=== PATIENT | male | born 1970 | race Hispanic/Latino ===

== ENCOUNTER 2018-02-04 17:23 | Inpatient (IN) | payer SELFPAY ==
[2018-02-04 17:31] VITALS: BMI 23.6
[2018-02-04] MEDS ORDERED: Multivitamin (MVI) 10 ML, Thiamine 100 MG, Folic Acid 1 MG in Sodium Chloride 0.9% 1,00... IV ONE (17:46)
[2018-02-04 18:09] LABS: VENOUS BLOOD GAS BASE EXCESS 4.9 mmol/L (0.0-2.0); VENOUS BLOOD GAS PO2 66 mm/Hg (30-55); VENOUS BLOOD PH 7.46 (7.32-7.43)
[2018-02-04 18:11] LABS: BASO # 0.02 K/mm3 (0.0-2.0); BASO % 0.2 % (0.0-3.0); GRAN # 10.05 (1.4-6.5); GRAN % 84.4 % (50.0-68.0); LYMPH # 1.1 (1.2-3.4); LYMPH % 9.3 % (22.0-35.0); MEAN CELL VOLUME 85.6 fl (80.0-105.0); MEAN CORPUSCULAR HEMOGLOBIN 31.6 pg (25.0-35.0); MEAN PLATELET VOLUME 9.8 fl (7.0-11.0); MONO # 0.7 (0.1-0.6); MONO % 6.1 % (1.0-6.0); RBC 5.06 10^6/uL (3.5-6.1); RED CELL DISTRIBUTION WIDTH 12.9 % (11.5-14.5); WHITE BLOOD COUNT 11.9 10^3/ul (4.5-11.0)
--- NOTE | 2018-02-04 18:14 | RAD ---
Date of service: 02/04/2018 PROCEDURE: CHEST RADIOGRAPH, 1 VIEW HISTORY: etoh withdrawal COMPARISON: None available. FINDINGS: LUNGS: Clear. PLEURA: No pneumothorax or pleural fluid seen. CARDIOVASCULAR: Normal. OSSEOUS STRUCTURES: No significant abnormalities. VISUALIZED UPPER ABDOMEN: Normal. OTHER FINDINGS: None. IMPRESSION: No focal airspace opacity.
[2018-02-04 18:22] LABS: ALB/GLOB RATIO 1.5 (1.1-1.8); ALBUMIN 4.9 g/dL (3.0-4.8); ALT/SGPT 32 U/L (7-56); AST/SGOT 50 U/L (17-59); BLOOD UREA NITROGEN 13 mg/dL (7-21); GFR AFRICAN-AMERICAN > 60; GFR NON-AFRICAN AMERICAN > 60
[2018-02-04 18:25] LABS: INR 1.11 (0.93-1.08); PARTIAL THROMBOPLASTIN TIME 29.6 Seconds (25.1-36.5); PROTHROMBIN TIME 12.7 SECONDS (9.4-12.5)
[2018-02-04 18:26] LABS: ACETAMINOPHEN < 10.0 ug/ml (10.0-20.0); SALICYLATE < 1 mg/dL (2.0-20.0)
[2018-02-04] MEDS ORDERED: Sodium Chloride 0.9% 1,000 ML IV STA (18:29)
[2018-02-04 18:33] LABS: TROPONIN I < 0.01 ng/mL
[2018-02-04 18:45] LABS: CK MB% 0.8 % (2.5-3.0); CK-MB 8.1 ng/mL (0.0-3.6)
[2018-02-04 18:58] LABS: OSMOLALITY,SERUM 328 mosm/kg (272-300)
--- NOTE | 2018-02-04 19:22 | ED PDOC ---
Arrival/HPI - General Chief Complaint: GI Problem Time Seen by Provider: 02/04/18 17:24 Historian: Patient - History of Present Illness Narrative History of Present Illness (Text): 02/04/18 19:21 47-year-old male with a history of alcohol abuse presents today feeling very anxious and shaky. Patient states he drank a bottle of rubbing alcohol today. Patient complaining of nausea and vomiting. pt states he drank the rubbing alcohol because he didnt have any alcohol in the house. He denies dizziness. He denies chest pain. Patient states he feels his heart racing. Patient denies suicidal or homicidal ideation Past Medical History - Provider Review Nursing Documentation Reviewed: Yes - Travel History Have you recently traveled outside [place] w/in the past 3 mons?: No - Infectious Disease Hx of Infectious Diseases: None - Tetanus Immunization Tetanus Immunization: Unknown - Cardiac Hx Pacemaker: No - Pulmonary Hx Respiratory Disorders: No - Neurological Hx Paralysis: No - HEENT Hx HEENT Disorder: No - Renal Hx Renal Disorder: No - Endocrine/Metabolic Hx Endocrine Disorders: No - Hematological/Oncological Hx Blood Transfusions: No Hx Blood Transfusion Reaction: No - Integumentary Hx Dermatological Disorder: No - Musculoskeletal/Rheumatological Hx Musculoskeletal Disorders: No - Gastrointestinal Hx Gastrointestinal Disorders: No - Genitourinary/Gynecological Hx Genitourinary Disorders: No - Psychiatric Hx Emotional Abuse: No Hx Physical Abuse: No Hx Substance Use: No - Surgical History Hx Amputation: No Hx Appendectomy: No Hx Cardiac Catheterization: No Hx Cholecystectomy: No Hx Coronary Stent: No Hx Gastric Bypass Surgery: No Hx Hysterectomy: No Hx Joint Replacement: No Hx Kidney Transplant: No Hx Liver Transplant: No Hx Mastectomy: No Hx Musculoskeletal Surgery: No Hx Open Heart Surgery: No Hx Orthopedic Surgery: No Hx Splenectomy: No Hx Valve Replacement: No - Anesthesia Hx Anesthesia Reactions: No Hx Malignant Hyperthermia: No - Suicidal Assessment Feels Threatened In Home Enviroment: No Family/Social History - Physician Review Nursing Documentation Reviewed: Yes Family/Social History: Unknown Family HX Smoking Status: Former Smoker Hx Alcohol Use: Yes (SOCIALLY=BEER & WINE) Hx Substance Use: No Allergies/Home Meds Allergies/Adverse Reactions: Allergies No Known Allergies Allergy (Verified 05/29/15 16:50) Home Medications: Home Meds Medication Instructions Recorded Confirmed Dexlansoprazole [Dexilant] 60 mg PO DAILY 08/19/15 08/20/15 Hydrocodone/Acetaminophen [Vicodin 1 each PO Q8H PRN 08/19/15 08/20/15 Hp 10-300 mg Tablet] Polyethylene Glycol 3350 [Miralax] 17 gm PO DAILY 08/19/15 08/19/15 clonazePAM [clonAZEPAM] 0.5 mg PO BID 08/19/15 08/20/15 metroNIDAZOLE [Flagyl] 250 mg PO QID 08/19/15 08/20/15 Review of Systems - Review of Systems Constitutional: absent: Fatigue, Fevers Respiratory: absent: SOB, Cough Cardiovascular: absent: Chest Pain, Palpitations Gastrointestinal: Nausea, Vomiting. absent: Abdominal Pain Genitourinary Male: absent: Dysuria, Frequency, Hematuria Musculoskeletal: absent: Arthralgias, Back Pain, Neck Pain Skin: absent: Rash Neurological: absent: Headache, Dizziness Psychiatric: absent: Anxiety, Depression, Suicidal Ideation Physical Exam Vital Signs Reviewed: Yes Vital Signs Temp Pulse Resp BP Pulse Ox 02/04/18 19:49 99 H 17 121/74 99 02/04/18 18:57 94 H 22 143/91 H 97 02/04/18 17:30 98.6 F 92 H 20 159/78 H 98 Temperature: Afebrile Blood Pressure: Hypertensive Pulse: Tachycardic Respiratory Rate: Normal Appearance: Positive for: Well-Appearing, Non-Toxic, Comfortable Pain Distress: None Mental Status: Positive for: Alert and Oriented X 3 - Systems Exam Head: Present: Atraumatic Mouth: Present: Moist Mucous Membranes Nose (External): Present: Atraumatic Neck: Present: Normal Range of Motion Respiratory/Chest: Present: Clear to Auscultation, Good Air Exchange, Other ( round area of ecchymosis to right upper chest, and left upper arm). No: Respiratory Distress, Accessory Muscle Use, Tender to Palpation Cardiovascular: Present: Regular Rate and Rhythm, Normal S1, S2. No: Murmurs Abdomen: No: Tenderness, Distention, Peritoneal Signs, Rebound, Guarding Back: Present: Normal Inspection Upper Extremity: Present: Other (+ tremor noted) Neurological: Present: GCS=15, Speech Normal Psychiatric: Present: Alert, Oriented x 3 Medical Decision Making ED Course and Treatment: 02/04/18 19:26 37-year-old male presents today for nausea and vomiting states he drank a bottle of rubbing alcohol today. pt with healing bruises to right chest wall, left upper arm. pt states he was playing [employer]. CBC White blood cell count 11.9 CMP potassium 3.5 Alcohol less than 10 CPK 962 Troponin within normal limits EKG shows normal sinus rhythm with sinus arrhythmia at 92 bpm QTc 455 Lactate 2.2 chest x-ray shows no infiltrate or effusion. No no cardiomegaly pt given banana bag and NS IV bolus ativan given IV. case was discussed with poison control. They advised Symptomatic treatment. 02/04/18 19:34 case discussed [facility] dr. ragsdale; accepts admission for ETOH withdrawal impression; ETOH withdrawal, impending dts, rubbing alcohol overdose admit to tele. Reassessment Condition: Re-examined, Improved - Lab Interpretations Lab Results: 02/04/18 17:51 02/04/18 17:51 Lab Results 02/04/18 17:51: WBC 11.9 H D, RBC 5.06, Hgb 16.0, Hct 43.3, MCV 85.6, MCH 31.6, MCHC 37.0, RDW 12.9, Plt Count 270, MPV 9.8, Gran % 84.4 H, Lymph % (Auto) 9.3 L , [place] % (Auto) 6.1 H, Eos % (Auto) 0.0 L, Baso % (Auto) 0.2, Gran # 10.05 H, Lymph # (Auto) 1.1 L, [place] # (Auto) 0.7 H, Eos # (Auto) 0.0, Baso # (Auto) 0.02 02/04/18 17:51: Serum Osmolality 328 H, Alcohol, Quantitative < 10 02/04/18 17:51: Salicylates < 1 L, Acetaminophen < 10.0 L 02/04/18 17:51: Sodium 142, Chloride 100, Potassium 3.5 L, Carbon Dioxide 27, Anion Gap 18, BUN 13, Creatinine 0.6 L, Est GFR ( Amer) > 60, Est GFR ( Non-Af Amer) > 60, Random Glucose 126 H, Calcium 9.0, Total Bilirubin 1.1, AST 50, ALT 32, Alkaline Phosphatase 64, Lactate Dehydrogenase 634, Total Creatine Kinase 962 H, CK-MB (CK-2) 8.1 H, CK-MB (CK-2) % 0.8 L, Troponin I < 0.01, Total Protein 8.0, Albumin 4.9 H, Globulin 3.2, Albumin/Globulin Ratio 1.5 02/04/18 17:51: pO2 66 H, VBG pH 7.46 H, VBG pCO2 41.0, VBG HCO3 29.2 H, VBG Total CO2 30.5 H, VBG O2 Sat (Calc) 96.1 H, VBG Base Excess 4.9 H, VBG Potassium 3.3 L, Sodium 141.0, Chloride 103.0, Glucose 130 H, Lactate 2.2 H, FiO2 21.0, Venous Blood Potassium 3.3 L 02/04/18 17:51: PT 12.7 H, INR 1.11 H, APTT 29.6 - RAD Interpretation Radiology Orders: 02/04/18 17:44 CHEST PORTABLE [RAD] Stat - Medication Orders Current Medication Orders: Discontinued Medications Multivitamins/Vitamin C 10 ml/Thiamine HCl 100 mg/ Folic Acid 1 mg/ Sodium Chloride 1,011.2 mls @ 1,000 mls/hr IV .Q1H1M ONE Stop: 02/04/18 18:46 Last Admin: 02/04/18 18:55 Dose: 1,000 mls/hr eMAR Start Stop Document 02/04/18 18:55 SRE (Rec: 02/04/18 18:56 SRE [id number]) Intravenous Solution Start Date 02/04/18 Start Time 19:00 End Date 02/04/18 End time 20:00 Total Infusion Time 60 Sodium Chloride (Sodium Chloride 0.9%) 1,000 mls @ 999 mls/hr IV .Q1H1M STA Stop: 02/04/18 19:29 Last Admin: 02/04/18 18:54 Dose: 999 mls/hr eMAR Start Stop Document 02/04/18 18:54 SRE (Rec: 02/04/18 18:55 SRE [id number]) Intravenous Solution Start Date 02/04/18 Start Time 18:30 End Date 02/04/18 End time 19:30 Total Infusion Time 60 Lorazepam (Ativan) 1 mg IVP ONCE ONE PRN Reason: Protocol Stop: 02/04/18 17:46 Last Admin: 02/04/18 18:03 Dose: 1 mg IVP Administration Document 02/04/18 18:03 SRE (Rec: 02/04/18 18:03 SRE [id number]) Charges for Administration # of IVP Administrations 1 Disposition/Present on Arrival - Present on Arrival Any Indicators Present on Arrival: No History of DVT/PE: No History of Uncontrolled Diabetes: No Urinary Catheter: No History of Decub. Ulcer: No History Surgical Site Infection Following: None - Disposition Have Diagnosis and Disposition been Completed?: Yes Diagnosis: Alcohol withdrawal, Isopropyl alcohol poisoning Disposition: HOSPITALIZED Disposition Time: 19:37 Patient Plan: Admission Patient Problems: Current Active Problems Problem Status Onset Alcohol withdrawal Acute Isopropyl alcohol poisoning Acute Condition: FAIR
[2018-02-04 20:20] LABS: BARBITURATES, UR NEGATIVE (NEGATIVE); BENZODIAZEPINES, UR NEGATIVE (NEGATIVE); OPIATES, UR NEGATIVE (NEGATIVE); PHENCYCLIDINE, UR NEGATIVE (NEGATIVE)
[2018-02-04 20:23] LABS: PH,URINE 6.5 (4.7-8.0); URINE APPEARANCE CLEAR (CLEAR); URINE BILIRUBIN NEGATIVE (NEGATIVE); URINE BLOOD TRACE-LYSED (NEGATIVE); URINE COLOR YELLOW (YELLOW); URINE GLUCOSE (UA) NEGATIVE (NEGATIVE); URINE LEUKOCYTE ESTERASE NEGATIVE Leu/uL (NEGATIVE); URINE PROTEIN 100 mg/dL (<30 mg/dL)
[2018-02-04 20:26] LABS: URINE AMORPHOUS SEDIMENT FEW; URINE BACTERIA MANY (NEG); URINE EPITHELIAL CELLS 0 - 2 /hpf (0-5)
[2018-02-04 21:51] LABS: VENOUS BLOOD GAS BASE EXCESS 2.6 mmol/L (0.0-2.0); VENOUS BLOOD GAS PO2 29 mm/Hg (30-55); VENOUS BLOOD PH 7.43 (7.32-7.43)
[2018-02-04] MEDS ORDERED: Pneumococcal 23-Valent Vaccine IM ONE (22:32)
[2018-02-05] MEDS ORDERED: Multivitamin (MVI) 10 ML, Thiamine 100 MG, Folic Acid 1 MG in Sodium Chloride 0.9% 1,00... IV ONE ×2 (00:14→00:30)
[2018-02-05] MEDS: Pantoprazole 40 mg EC Tab PO SCH (05:36)
[2018-02-05 06:45] LABS: BASO # 0.02 K/mm3 (0.0-2.0); BASO % 0.2 % (0.0-3.0); GRAN # 8.87 (1.4-6.5); GRAN % 79.1 % (50.0-68.0); HEMOGLOBIN 14.1 g/dL (14.0-18.0); LYMPH # 1.6 (1.2-3.4); LYMPH % 14.3 % (22.0-35.0); MEAN CELL VOLUME 86.9 fl (80.0-105.0); MEAN CORPUSCULAR HEMOGLOBIN 30.7 pg (25.0-35.0); MEAN CORPUSCULAR HGB CONC 35.3 g/dl (31.0-37.0); MEAN PLATELET VOLUME 10.1 fl (7.0-11.0); MONO # 0.7 (0.1-0.6); MONO % 6.4 % (1.0-6.0); RBC 4.59 10^6/uL (3.5-6.1); RED CELL DISTRIBUTION WIDTH 12.8 % (11.5-14.5); WHITE BLOOD COUNT 11.2 10^3/ul (4.5-11.0)
[2018-02-05 07:37] LABS: ALB/GLOB RATIO 1.5 (1.1-1.8); ALBUMIN 3.7 g/dL (3.0-4.8); ALT/SGPT 37 U/L (7-56); AST/SGOT 43 U/L (17-59); BLOOD UREA NITROGEN 9 mg/dL (7-21); GFR AFRICAN-AMERICAN > 60; GFR NON-AFRICAN AMERICAN > 60
[2018-02-05] MEDS ORDERED: Potassium Chloride 20 mEq ER Tab PO ONE (07:43)
--- NOTE | 2018-02-05 07:45 | CP.PCM.HP ---
History of Present Illness - History of Present Illness History of Present Illness: Anton Honeycutt DO PGY1 [facility] CC: Isopropyl EtOH ingestion, Tremors/ Anxiety HPI: Pt is a 47M who presented to [facility] ED on 02/04 w/ complaints of increasing tremors / agitation. Pt has been seen here in the past for diverticulitis; Pt. reports he regularly drinks 6 beers/day along with 1/2 pint of liquor day. He reported that he last drank liquor on afternoon; He denies drinking any homemade /noncommercial alcohol. He Woke up Wednesday AM and felt anxious w/ some tremors at which point patient decided to drink isopropyl alcohol to help his tremors. He reports previous episodes of withdrawals, and denies any associated seizure, hallucinations, suicidal ideation. Poison control called in regards to isopropyl ingestion, and reports symptomatic management. Patient denies any headache, visual defect, blurry vision, chest pain, palpitations, abdominal pain, nausea, vomiting, diarrhea, constipation, Remainder 12 system ROS negative PMD: Chetna Ramsay PMH: none Pharmacy: [facility] Allergies: NKDA Social: EtOH abuse as above, In the ED: VSS, CBC wnl CMP K= 3.5 CK 962 UA: Ketones 40 CXR: wnl Present on Admission - Present on Admission Any Indicators Present on Admission: No Review of Systems - Review of Systems All systems: reviewed and no additional remarkable complaints except Review of Systems: as per HPI Past Patient History - Infectious Disease Hx of Infectious Diseases: None - Tetanus Immunizations Tetanus Immunization: Unknown - Past Social History Smoking Status: Former Smoker - CARDIAC Hx Pacemaker: No - PULMONARY Hx Respiratory Disorders: Yes (USED TO SMOKE CIGARETTES PPD,NOW USES VAPE) Hx Asthma: No - NEUROLOGICAL Hx Neurological Disorder: No Hx Seizures: Yes ("CONVULSIONS" A CHILD PT STATED) - HEENT Hx HEENT Problems: No - RENAL Hx Chronic Kidney Disease: No - ENDOCRINE/METABOLIC Hx Endocrine Disorders: No - HEMATOLOGICAL/ONCOLOGICAL Hx Blood Disorders: No - INTEGUMENTARY Hx Dermatological Problems: No - MUSCULOSKELETAL/RHEUMATOLOGICAL Hx Musculoskeletal Disorders: Yes (ANKLE SX FROM FALL PLAYING BALL.) Hx Falls: Yes - GASTROINTESTINAL Hx Gastrointestinal Disorders: Yes (COLITIS,GASTROENTERITIS) Hx Diverticulitis: Yes - GENITOURINARY/GYNECOLOGICAL Hx Genitourinary Disorders: No - PSYCHIATRIC Hx Psychophysiologic Disorder: Yes (ETOH ABUSE,SMOKED CIGARETTES) Hx Emotional Abuse: No Hx Physical Abuse: No Hx Substance Use: No - SURGICAL HISTORY Hx Surgeries: Yes (ANKLE SX) Hx Amputation: No Hx Appendectomy: No Hx Cardiac Catheterization: No Hx Cholecystectomy: No Hx Coronary Stent: No Hx Gastric Bypass Surgery: No Hx Hysterectomy: No Hx Joint Replacement: No Hx Kidney Transplant: No Hx Liver Transplant: No Hx Mastectomy: No Hx Musculoskeletal Surgery: No Hx Open Heart Surgery: No Hx Orthopedic Surgery: No Hx Splenectomy: No Hx Valve Replacement: No - ANESTHESIA Hx Anesthesia Reactions: No Hx Malignant Hyperthermia: No Meds Allergies/Adverse Reactions: Allergies Allergy/AdvReac Type Severity Reaction Status Date / Time No Known Allergies Allergy Verified 02/04/18 21:03 Physical Exam - Constitutional Appears: Well, Non-toxic, No Acute Distress Additional comments: Patient appears to be tremulous - Head Exam Head Exam: ATRAUMATIC, NORMOCEPHALIC - Eye Exam Eye Exam: EOMI, PERRL. absent: Scleral icterus - ENT Exam ENT Exam: Mucous Membranes Dry - Neck Exam Additional comments: No carotid bruit - Respiratory Exam Respiratory Exam: Clear to Auscultation Bilateral, NORMAL BREATHING PATTERN. absent: Rales, Rhonchi, Wheezes, Respiratory Distress - Cardiovascular Exam Cardiovascular Exam: RRR, +S1, +S2 - GI/Abdominal Exam GI & Abdominal Exam: Soft. absent: Tenderness - Back Exam Back exam: absent: CVA tenderness (L), CVA tenderness (R) - Neurological Exam Neurological exam: Alert, CN II-XII Intact, Oriented x3 - Psychiatric Exam Psychiatric exam: Anxious, Normal Affect - Skin Skin Exam: Dry, Intact, Warm Additional comments: Flushed Results - Vital Signs Recent Vital Signs: Last Vital Signs Temp 97.8 F 02/05/18 06:00 Pulse 95 H 02/05/18 06:00 Resp 20 02/05/18 06:00 BP 126/74 02/05/18 06:00 Pulse Ox 97 02/05/18 06:00 - Labs Result Diagrams: 02/05/18 06:00 02/05/18 06:00 Labs: Laboratory Results - last 24 hr 02/04/18 02/04/18 02/04/18 19:43 19:43 21:45 WBC RBC Hgb Hct MCV MCH MCHC RDW Plt Count MPV Gran % Lymph % (Auto) [place] % (Auto) Eos % (Auto) Baso % (Auto) Gran # Lymph # (Auto) [place] # (Auto) Eos # (Auto) Baso # (Auto) pO2 29 L VBG pH 7.43 VBG pCO2 41.0 VBG HCO3 27.2 VBG Total CO2 28.5 H VBG O2 Sat (Calc) 63.1 VBG Base Excess 2.6 H VBG Potassium 3.3 L Sodium 140.0 Chloride 106.0 Glucose 119 H Lactate 1.1 FiO2 21.0 Potassium Carbon Dioxide Anion Gap BUN Creatinine Est GFR ( Amer) Est GFR (Non-Af Amer) Random Glucose Calcium Phosphorus Magnesium Total Bilirubin AST ALT Alkaline Phosphatase Total Creatine Kinase Total Protein Albumin Globulin Albumin/Globulin Ratio Venous Blood Potassium 3.3 L Urine Color Yellow Urine Appearance Clear Urine pH 6.5 Ur Specific [place] 1.025 Urine Protein 100 H Urine Glucose (UA) Negative Urine Ketones 40 H Urine Blood Trace-lysed H Urine Nitrate Negative Urine Bilirubin Negative Urine Urobilinogen 1.0 H Ur Leukocyte Esterase Negative Urine RBC 2 - 5 Urine WBC 1 - 3 Ur Epithelial Cells 0 - 2 Amorphous Sediment Few Urine Bacteria Many Urine Opiates Screen Negative Urine Methadone Screen Negative Ur Barbiturates Screen Negative Ur Phencyclidine Scrn Negative Ur Amphetamines Screen Negative U Benzodiazepines Scrn Negative U Oth Cocaine Metabols Negative U Cannabinoids Screen Negative 02/05/18 02/05/18 06:00 06:00 WBC 11.2 H RBC 4.59 Hgb 14.1 Hct 39.9 L MCV 86.9 MCH 30.7 MCHC 35.3 RDW 12.8 Plt Count 201 MPV 10.1 Gran % 79.1 H Lymph % (Auto) 14.3 L [place] % (Auto) 6.4 H Eos % (Auto) 0.0 L Baso % (Auto) 0.2 Gran # 8.87 H Lymph # (Auto) 1.6 [place] # (Auto) 0.7 H Eos # (Auto) 0.0 Baso # (Auto) 0.02 pO2 VBG pH VBG pCO2 VBG HCO3 VBG Total CO2 VBG O2 Sat (Calc) VBG Base Excess VBG Potassium Sodium 141 Chloride 104 Glucose Lactate FiO2 Potassium 3.3 L Carbon Dioxide 26 Anion Gap 15 BUN 9 Creatinine 0.6 L Est GFR ( Amer) > 60 Est GFR (Non-Af Amer) > 60 Random Glucose 88 Calcium 8.0 L Phosphorus 2.2 L Magnesium 2.2 Total Bilirubin 1.4 H AST 43 ALT 37 Alkaline Phosphatase 51 Total Creatine Kinase 1077 H Total Protein 6.3 Albumin 3.7 Globulin 2.5 Albumin/Globulin Ratio 1.5 Venous Blood Potassium Urine Color Urine Appearance Urine pH Ur Specific [place] Urine Protein Urine Glucose (UA) Urine Ketones Urine Blood Urine Nitrate Urine Bilirubin Urine Urobilinogen Ur Leukocyte Esterase Urine RBC Urine WBC Ur Epithelial Cells Amorphous Sediment Urine Bacteria Urine Opiates Screen Urine Methadone Screen Ur Barbiturates Screen Ur Phencyclidine Scrn Ur Amphetamines Screen U Benzodiazepines Scrn U Oth Cocaine Metabols U Cannabinoids Screen Assessment & Plan - Assessment and Plan (Free Text) Assessment: Pt is a 47M w/ a PMH of diverticulitis, significant EtOH abuse who presented to [facility] ED on 02/04 w/ a CC of Isopropyl alcohol ingestion, and increasing tremors/ anxiety Isopropyl EtOH Ingestion Symptomatic management as per poison control Ketonuria; AG normal; HCO3 wnl EtOH Withdrawal CIWA protocol Seizure Precautions Banana bag @ 150mls/hr Ativan 2mg Q2H PRN per protocol Librium 25mg Q8 SCHD; Consider taper once medically appropriate Elevated CK Likely 2/2 rhabdo/dehydration vs seizure Continue w/ IVF as above Hypocaclemia likely dilutional recheck in afternoon Hypokalemia Repleted 40meq K+ PO Recheck in afternoon GI/DVT PPX: Protonix/ SCD Patient seen, examined, and discussed w/ attending physician Dr. Joann Honeycutt DO PGY1 Internal Medicine [employer] - Date & Time Date: 02/05/18 Time: 07:58
[2018-02-05] MEDS ORDERED: Potassium Chloride 40 mEq/30 ml LIQ UD PO STA (07:53)
[2018-02-05 07:56] LABS: CK-MB 10.3 ng/mL (0.0-3.6)
[2018-02-05] MEDS: Multivitamin Therapeutic Tab PO SCH (08:02)
[2018-02-05] MEDS: Sodium Chloride 0.9% 1,000 ML IV SCH ×4 (08:08→22:31)
--- NOTE | 2018-02-05 12:11 | CARD ---
APPROVED REPORT Date of service: 02/05/2018 EKG Measurement Heart [id number] [id number] <Conclusion> Normal sinus rhythm Normal ECG
--- NOTE | 2018-02-05 12:16 | CARD ---
APPROVED REPORT Date of service: 02/04/2018 EKG Measurement Heart [id number] [id number] <Conclusion> Normal sinus rhythm with sinus arrhythmia Possible Left atrial enlargement Borderline ECG
[2018-02-06 01:35] VITALS: RESP 20
[2018-02-06] MEDS: Pantoprazole 40 mg EC Tab PO SCH (05:40)
[2018-02-06] MEDS: Sodium Chloride 0.9% 1,000 ML IV SCH (05:43)
[2018-02-06 06:58] LABS: BASO # 0.02 K/mm3 (0.0-2.0); BASO % 0.2 % (0.0-3.0); EOS % 0.3 % (1.5-5.0); GRAN # 8.2 (1.4-6.5); GRAN % 84.5 % (50.0-68.0); HEMOGLOBIN 13.3 g/dL (14.0-18.0); LYMPH % 10.5 % (22.0-35.0); MEAN CELL VOLUME 85.6 fl (80.0-105.0); MEAN CORPUSCULAR HEMOGLOBIN 30.3 pg (25.0-35.0); MEAN CORPUSCULAR HGB CONC 35.4 g/dl (31.0-37.0); MEAN PLATELET VOLUME 9.9 fl (7.0-11.0); MONO # 0.4 (0.1-0.6); MONO % 4.5 % (1.0-6.0); RBC 4.39 10^6/uL (3.5-6.1); RED CELL DISTRIBUTION WIDTH 12.5 % (11.5-14.5); WHITE BLOOD COUNT 9.7 10^3/ul (4.5-11.0)
[2018-02-06] MEDS: Multivitamin Therapeutic Tab PO SCH (07:24)
[2018-02-06 07:43] LABS: ALB/GLOB RATIO 1.3 (1.1-1.8); ALBUMIN 3.4 g/dL (3.0-4.8); ALT/SGPT 33 U/L (7-56); AST/SGOT 51 U/L (17-59); BLOOD UREA NITROGEN 5 mg/dL (7-21); GFR AFRICAN-AMERICAN > 60; GFR NON-AFRICAN AMERICAN > 60
[2018-02-06 07:44] LABS: CK-MB 2.1 ng/mL (0.0-3.6)
[2018-02-06] MEDS ORDERED: Potassium Chloride 20 mEq ER Tab PO STA (08:11)
--- NOTE | 2018-02-06 11:47 | CP.PCM.PN ---
<Howie Mae - Last Filed: 02/06/18 12:28> Subjective - Date & Time of Evaluation Date of Evaluation: 02/06/18 Time of Evaluation: 07:45 - Subjective Subjective: Howie Mae DO PGY-1, Event Designer Medicine Progress Note Pt seen and examined at bedside. States that he is doing well this am, slept well overnight, tolerating PO diet without concerns. Pt was administered librium and ativan overnight. No acute events reported. Objective - Vital Signs/Intake and Output Vital Signs (last 24 hours): Temp Pulse Resp BP Pulse Ox 98.6 F 99 H 20 131/76 97 02/06/18 06:00 02/06/18 06:00 02/06/18 06:00 02/06/18 06:00 02/06/18 06:00 Intake and Output: 02/06/18 02/06/18 06:59 18:59 Intake Total 2440 Output Total 1600 Balance 840 - Medications Medications: Current Medications Chlordiazepoxide (Librium) 10 mg PO Q8 [facility] Folic Acid (Folic Acid) 1 mg PO DAILY [facility] Last Admin: 02/06/18 09:00 Dose: 1 mg Lorazepam (Ativan) 2 mg IVP Q6H PRN; Protocol PRN Reason: Agitation Multivitamins (Thera Tab) 1 tab PO 0800 [facility] Last Admin: 02/06/18 07:24 Dose: 1 tab Pantoprazole Sodium (Protonix Ec Tab) 40 mg PO 0600 [facility] Last Admin: 02/06/18 05:40 Dose: 40 mg Thiamine HCl (Vitamin B1 Tab) 100 mg PO DAILY [facility] Last Admin: 02/06/18 09:00 Dose: 100 mg - Labs Labs: 02/06/18 06:00 02/06/18 06:00 PT 12.7 SECONDS (9.4-12.5) H 02/04/18 17:51 INR 1.11 (0.93-1.08) H 02/04/18 17:51 APTT 29.6 Seconds (25.1-36.5) 02/04/18 17:51 - Constitutional Appears: Well, Non-toxic, No Acute Distress - Head Exam Head Exam: ATRAUMATIC, NORMAL INSPECTION, NORMOCEPHALIC - Eye Exam Eye Exam: EOMI, Normal appearance, PERRL - ENT Exam ENT Exam: Mucous Membranes Moist, Normal Oropharynx - Respiratory Exam Respiratory Exam: Clear to Ausculation Bilateral, NORMAL BREATHING PATTERN - Cardiovascular Exam Cardiovascular Exam: REGULAR RHYTHM, +S1, +S2 - GI/Abdominal Exam GI & Abdominal Exam: Soft, Normal Bowel Sounds - Extremities Exam Extremities Exam: Full ROM, Normal Capillary Refill, Normal Inspection - Back Exam Back Exam: Full ROM, NORMAL INSPECTION - Neurological Exam Neurological Exam: Alert, Awake, CN II-XII Intact, Oriented x3 Additional comments: No tremors noted, negative Romberg's test - Psychiatric Exam Psychiatric exam: Normal Affect, Normal Mood - Skin Skin Exam: Dry, Intact, Normal Color, Warm Assessment and Plan - Assessment and Plan (Free Text) Assessment: 44 y o male PMhx diverticulitis, significant EtOH abuse, presented to the ED on 02/04/18 s/p isopropyl alcohol ingestion with a chief complaint of increasing tremors and anxiety. Pt currently being managed for alcohol withdrawal. Plan: Isopropyl Alcohol Ingestion Symptomatic management as per poison control Afebrile, vitals stable Pt presented with ketonuria on admission, tolerating PO diet; HCO3 wnl Alcohol withdrawal CIWA protocol, last score of 2 at 8:00 this morning, pt not anxious on exam or demonstrating tremors Seizure precautions Ativan 2 mg q 6 h PRN Librium 25 mg q 8 h odalys Taper as appropriate EKG 02/05 wnl CXR demonstrated no focal air opacity Follow up PT eval Elevated CK Likely 2/2 rhabdomyolysis vs. dehydration on admission Repeat CK this am 345 Pt tolerating PO diet, IVF d/c'd Hypocalcemia Likely dilutional, continue to trend, pt asymptomatic Hypokalemia Today on labs 3.3 Repleted with 40 mEq KCl PO, continue to trend GI/DVT ppx: Protonix/SCDs Pt seen, examined with, and plan discussed with Dr. Colón, attending. Howie Mae DO PGY-1, Event Designer Pager #[phone] <Donte Colón - Last Filed: 02/07/18 07:11> Objective - Vital Signs/Intake and Output Vital Signs (last 24 hours): Temp Pulse Resp BP Pulse Ox 98.1 F 85 20 109/71 98 02/07/18 06:00 02/07/18 06:00 02/07/18 06:00 02/07/18 06:00 02/07/18 06:00 Intake and Output: 02/07/18 02/07/18 06:59 18:59 Intake Total 240 Balance 240 - Medications Medications: Current Medications Chlordiazepoxide (Librium) 10 mg PO Q8 [facility] Last Admin: 02/07/18 05:28 Dose: 10 mg Folic Acid (Folic Acid) 1 mg PO DAILY [facility] Last Admin: 02/06/18 09:00 Dose: 1 mg Lorazepam (Ativan) 2 mg IVP Q6H PRN; Protocol PRN Reason: Agitation Last Admin: 02/06/18 22:29 Dose: 2 mg Multivitamins (Thera Tab) 1 tab PO 0800 [facility] Last Admin: 02/06/18 07:24 Dose: 1 tab Pantoprazole Sodium (Protonix Ec Tab) 40 mg PO 0600 [facility] Last Admin: 02/07/18 05:28 Dose: 40 mg Thiamine HCl (Vitamin B1 Tab) 100 mg PO DAILY [facility] Last Admin: 02/06/18 09:00 Dose: 100 mg - Labs Labs: 02/06/18 06:00 02/06/18 06:00 PT 12.7 SECONDS (9.4-12.5) H 02/04/18 17:51 INR 1.11 (0.93-1.08) H 02/04/18 17:51 APTT 29.6 Seconds (25.1-36.5) 02/04/18 17:51 Attending/Attestation - Attestation I have personally seen and examined this patient.: Yes I have fully participated in the care of the patient.: Yes I have reviewed all pertinent clinical information, including history, physical exam and plan: Yes Notes (Text): 02/06/18 44 year old male with past medical history of alcohol abuse who presented with alcohol withdrawal and isopropyl ingestion. He also had rhabdomyolysis and was started on fluids. He is on tapering librium and ativan. He is on multivitamin , folic acid and thiamine. CPK has improved. Will replete and repeat potassium. PT evaluation was requested. Donte Colón MD Hospitalist.
--- NOTE | 2018-02-06 12:25 | CARD ---
APPROVED REPORT Date of service: 02/05/2018 EKG Measurement Heart [id number] <Conclusion> Normal sinus rhythm Normal ECG
[2018-02-07] MEDS: Pantoprazole 40 mg EC Tab PO SCH (05:28)
[2018-02-07 06:40] LABS: BASO # 0.03 K/mm3 (0.0-2.0); BASO % 0.3 % (0.0-3.0); EOS # 0.3 (0.0-0.7); EOS % 2.7 % (1.5-5.0); GRAN # 8.65 (1.4-6.5); GRAN % 79.1 % (50.0-68.0); LYMPH # 1.4 (1.2-3.4); MEAN CELL VOLUME 85.9 fl (80.0-105.0); MEAN PLATELET VOLUME 10.1 fl (7.0-11.0); MONO # 0.5 (0.1-0.6); MONO % 4.9 % (1.0-6.0); RBC 5.04 10^6/uL (3.5-6.1); RED CELL DISTRIBUTION WIDTH 12.8 % (11.5-14.5); WHITE BLOOD COUNT 10.9 10^3/ul (4.5-11.0)
[2018-02-07 07:11] LABS: ALB/GLOB RATIO 1.3 (1.1-1.8); ALBUMIN 4.2 g/dL (3.0-4.8); ALT/SGPT 37 U/L (7-56); AST/SGOT 25 U/L (17-59); BLOOD UREA NITROGEN 10 mg/dL (7-21); GFR AFRICAN-AMERICAN > 60; GFR NON-AFRICAN AMERICAN > 60
[2018-02-07 07:25] LABS: HEMOGLOBIN 15.6 g/dL (14.0-18.0)
[2018-02-07 08:46] VITALS: O2SAT 94
[2018-02-07] MEDS: Multivitamin Therapeutic Tab PO SCH (09:28)
[2018-02-07 11:55] VITALS: BP 124/83; PULSE 98; TEMP 98.3
--- NOTE | 2018-02-07 13:57 | CP.PCM.DIS ---
<Howie Mae - Last Filed: 02/07/18 13:50> Provider - Provider Date of Admission: 02/04/18 19:40 Attending physician: Donte Colón MD Primary care physician: Chetna Ramsay MD Time Spent in preparation of Discharge (in minutes): 45 Hospital Course - Lab Results Lab Results: Most Recent Lab Values WBC 10.9 10^3/ul (4.5-11.0) 02/07/18 06:00 RBC 5.04 10^6/uL (3.5-6.1) 02/07/18 06:00 Hgb 15.6 g/dL (14.0-18.0) D 02/07/18 06:00 Hct 43.3 % (42.0-52.0) 02/07/18 06:00 MCV 85.9 fl (80.0-105.0) 02/07/18 06:00 MCH 31.0 pg (25.0-35.0) 02/07/18 06:00 MCHC 36.0 g/dl (31.0-37.0) 02/07/18 06:00 RDW 12.8 % (11.5-14.5) 02/07/18 06:00 Plt Count 189 10^3/uL (120.0-450.0) 02/07/18 06:00 MPV 10.1 fl (7.0-11.0) 02/07/18 06:00 Gran % 79.1 % (50.0-68.0) H 02/07/18 06:00 Lymph % (Auto) 13.0 % (22.0-35.0) L 02/07/18 06:00 [facility] [place] % (Auto) 4.9 % (1.0-6.0) 02/07/18 06:00 Eos % (Auto) 2.7 % (1.5-5.0) 02/07/18 06:00 Baso % (Auto) 0.3 % (0.0-3.0) 02/07/18 06:00 Gran # 8.65 (1.4-6.5) H 02/07/18 06:00 Lymph # (Auto) 1.4 (1.2-3.4) 02/07/18 06:00 [facility] # (Auto) 0.5 (0.1-0.6) 02/07/18 06:00 Eos # (Auto) 0.3 (0.0-0.7) 02/07/18 06:00 Baso # (Auto) 0.03 K/mm3 (0.0-2.0) 02/07/18 06:00 PT 12.7 SECONDS (9.4-12.5) H 02/04/18 17:51 INR 1.11 (0.93-1.08) H 02/04/18 17:51 APTT 29.6 Seconds (25.1-36.5) 02/04/18 17:51 pO2 29 mm/Hg (30-55) L 02/04/18 21:45 VBG pH 7.43 (7.32-7.43) 02/04/18 21:45 VBG pCO2 41.0 (40-60) 02/04/18 21:45 VBG HCO3 27.2 mmol/l (21-28) 02/04/18 21:45 VBG Total CO2 28.5 mmol.L (22-28) H 02/04/18 21:45 VBG O2 Sat (Calc) 63.1 % (40-65) 02/04/18 21:45 VBG Base Excess 2.6 mmol/L (0.0-2.0) H 02/04/18 21:45 VBG Potassium 3.3 mmol/L (3.6-5.2) L 02/04/18 21:45 Sodium 140.0 mmol/L (132-148) 02/04/18 21:45 Chloride 106.0 mmol/L (98-107) 02/04/18 21:45 Glucose 119 mg/dl (75-110) H 02/04/18 21:45 Lactate 1.1 mmol/L (0.7-2.1) 02/04/18 21:45 FiO2 21.0 % 02/04/18 21:45 Sodium 143 mmol/L (132-148) 02/07/18 06:00 Potassium 3.6 mmol/L (3.6-5.0) 02/07/18 06:00 Chloride 102 mmol/L (98-107) 02/07/18 06:00 Carbon Dioxide 29 mmol/L (21-33) 02/07/18 06:00 Anion Gap 15 (10-20) 02/07/18 06:00 BUN 10 mg/dL (7-21) 02/07/18 06:00 Creatinine 0.7 mg/dl (0.8-1.5) L 02/07/18 06:00 Est GFR ( Amer) > 60 02/07/18 06:00 Est GFR (Non-Af Amer) > 60 02/07/18 06:00 Random Glucose 89 mg/dL (70-110) 02/07/18 06:00 Serum Osmolality 328 mosm/kg (272-300) H 02/04/18 17:51 Calcium 9.0 mg/dL (8.4-10.5) 02/07/18 06:00 Phosphorus 4.0 mg/dL (2.5-4.5) 02/07/18 06:00 Magnesium 2.0 mg/dL (1.7-2.2) 02/07/18 06:00 Total Bilirubin 1.1 mg/dL (0.2-1.3) 02/07/18 06:00 AST 25 U/L (17-59) 02/07/18 06:00 ALT 37 U/L (7-56) 02/07/18 06:00 Alkaline Phosphatase 52 U/L (38-126) 02/07/18 06:00 Lactate Dehydrogenase 634 U/L (333-699) 02/04/18 17:51 Total Creatine Kinase 345 U/L (35-230) H 02/06/18 06:00 CK-MB (CK-2) 2.1 ng/mL (0.0-3.6) 02/06/18 06:00 CK-MB (CK-2) % 1.0 % (2.5-3.0) L 02/05/18 06:00 Troponin I < 0.01 ng/mL 02/04/18 17:51 Total Protein 7.3 g/dL (5.8-8.3) 02/07/18 06:00 Albumin 4.2 g/dL (3.0-4.8) 02/07/18 06:00 Globulin 3.2 gm/dL 02/07/18 06:00 Albumin/Globulin Ratio 1.3 (1.1-1.8) 02/07/18 06:00 Venous Blood Potassium 3.3 mmol/L (3.6-5.2) L 02/04/18 21:45 Urine Color Yellow (YELLOW) 02/04/18 19:43 Urine Appearance Clear (CLEAR) 02/04/18 19:43 Urine pH 6.5 (4.7-8.0) 02/04/18 19:43 Ur Specific [place] 1.025 (1.005-1.035) 02/04/18 19:43 Urine Protein 100 mg/dL (<30 mg/dL) H 02/04/18 19:43 Urine Glucose (UA) Negative mg/dL (NEGATIVE) 02/04/18 19:43 Urine Ketones 40 mg/dL (NEGATIVE) H 02/04/18 19:43 Urine Blood Trace-lysed (NEGATIVE) H 02/04/18 19:43 Urine Nitrate Negative (NEGATIVE) 02/04/18 19:43 Urine Bilirubin Negative (NEGATIVE) 02/04/18 19:43 Urine Urobilinogen 1.0 E.U./dL (<1 E.U./dL) H 02/04/18 19:43 Ur Leukocyte Esterase Negative Vicenta/uL (NEGATIVE) 02/04/18 19:43 Urine RBC 2 - 5 /hpf (0-2) 02/04/18 19:43 Urine WBC 1 - 3 /hpf (0-6) 02/04/18 19:43 Ur Epithelial Cells 0 - 2 /hpf (0-5) 02/04/18 19:43 Amorphous Sediment Few 02/04/18 19:43 Urine Bacteria Many (NEG) 02/04/18 19:43 Salicylates < 1 mg/dL (2.0-20.0) L 02/04/18 17:51 Urine Opiates Screen Negative (NEGATIVE) 02/04/18 19:43 Urine Methadone Screen Negative (NEGATIVE) 02/04/18 19:43 Acetaminophen < 10.0 ug/ml (10.0-20.0) L 02/04/18 17:51 Ur Barbiturates Screen Negative (NEGATIVE) 02/04/18 19:43 Ur Phencyclidine Scrn Negative (NEGATIVE) 02/04/18 19:43 Ur Amphetamines Screen Negative (NEGATIVE) 02/04/18 19:43 U Benzodiazepines Scrn Negative (NEGATIVE) 02/04/18 19:43 U Oth Cocaine Metabols Negative (NEGATIVE) 02/04/18 19:43 U Cannabinoids Screen Negative (NEGATIVE) 02/04/18 19:43 Alcohol, Quantitative < 10 mg/dL (0-10) 02/04/18 17:51 Isopropanol 0.011 g/dl 02/04/18 20:41 - Hospital Course Hospital Course: Howie Mae DO PGY-1, [employer] Medicine Discharge Summary Santana is a 47 y o m who presented to [facility] on 02/04/18 w/ complaints of increasing tremors/ agitation. Pt had been seen here in the past for diverticulitis; Pt reported that he regularly drinks 6 beers/day along with 1/2 pint of liquor day. He reported that he last drank liquor the afternoon before; He denied drinking any homemade/noncommercial alcohol. He woke up on day of admission and felt anxious w/ some tremors at which point patient decided to drink isopropyl alcohol to help his tremors. He reported previous episodes of withdrawals, and denied any associated seizure, hallucinations, suicidal ideation. Poison control was called in regards to isopropyl ingestion, and recommended symptomatic management. Patient denied any headache, visual defect, blurry vision, chest pain, palpitations, abdominal pain, nausea, vomiting, diarrhea, or constipation. Pt was admitted s/p isopropyl alcohol ingestion for monitoring of alcohol withdrawal. Pt was monitored during admission and given ativan and librium for withdrawal symptoms. Pt was given banana bag and multivitamin, folate, thiamine for hx alcohol abuse. Pt improved clinically, was AAOx3 on discharge, and on day of discharge, did not demonstrate signs or symptoms of alcohol withdrawal. Pt was discharged to home in stable condition on 02/07/18, with instruction to follow-up with his PCP Dr. Ramsay within 1 week of discharge. Pt was given education about resources for alcoholics, and cessation counseling. Discharge Exam - Head Exam Head Exam: ATRAUMATIC, NORMAL INSPECTION, NORMOCEPHALIC - Eye Exam Eye Exam: EOMI, Normal appearance, PERRL - ENT Exam ENT Exam: Mucous Membranes Moist, Normal Oropharynx - Neck Exam Neck exam: Full Rom, Normal Inspection - Respiratory Exam Respiratory Exam: Clear to PA & Lateral, NORMAL BREATHING PATTERN, UNREMARKABLE - Cardiovascular Exam Cardiovascular Exam: REGULAR RHYTHM, +S1, +S2 - GI/Abdominal Exam GI & Abdominal Exam: Normal Bowel Sounds, Soft, Unremarkable - Extremities Exam Extremities exam: full ROM, normal capillary refill, normal inspection, pedal pulses present - Back Exam Back exam: FULL ROM, NORMAL INSPECTION - Neurological Exam Neurological exam: Alert, CN II-XII Intact, Normal Gait, Oriented x3, Reflexes Normal - Psychiatric Exam Psychiatric exam: Normal Affect, Normal Mood - Skin Skin Exam: Dry, Intact, Normal Color, Warm Discharge Plan - Discharge Medications Prescriptions: Folic Acid 1 mg PO DAILY #30 tab Multivitamin Therapeutic Tab [Thera Tab] 1 tab PO 0800 #30 tab Thiamine [Vitamin B1 Tab] 50 mg PO DAILY #30 tab - Follow Up Plan Condition: FAIR Disposition: HOME/ ROUTINE Instructions: Alcohol Poisoning, Alcohol Withdrawal Additional Instructions: Discharge instructions: 1) please refrain from alcohol 2) please never ingest rubbing alcohol again - read education we have provided 3) please take new meds we prescribed 4) please follow up with Dr Ramsay in one week 5) please return to ed if symptoms persist or worsen Referrals: Chetna Ramsay MD [Primary Care Provider] - <Donte Colón - Last Filed: 02/07/18 17:46> Provider - Provider Date of Admission: 02/04/18 19:40 Attending physician: Donte Colón MD Primary care physician: Chetna Ramsay MD Hospital Course - Lab Results Lab Results: Most Recent Lab Values WBC 10.9 10^3/ul (4.5-11.0) 02/07/18 06:00 RBC 5.04 10^6/uL (3.5-6.1) 02/07/18 06:00 Hgb 15.6 g/dL (14.0-18.0) D 02/07/18 06:00 Hct 43.3 % (42.0-52.0) 02/07/18 06:00 MCV 85.9 fl (80.0-105.0) 02/07/18 06:00 MCH 31.0 pg (25.0-35.0) 02/07/18 06:00 MCHC 36.0 g/dl (31.0-37.0) 02/07/18 06:00 RDW 12.8 % (11.5-14.5) 02/07/18 06:00 Plt Count 189 10^3/uL (120.0-450.0) 02/07/18 06:00 MPV 10.1 fl (7.0-11.0) 02/07/18 06:00 Gran % 79.1 % (50.0-68.0) H 02/07/18 06:00 Lymph % (Auto) 13.0 % (22.0-35.0) L 02/07/18 06:00 [facility] % (Auto) 4.9 % (1.0-6.0) 02/07/18 06:00 Eos % (Auto) 2.7 % (1.5-5.0) 02/07/18 06:00 Baso % (Auto) 0.3 % (0.0-3.0) 02/07/18 06:00 Gran # 8.65 (1.4-6.5) H 02/07/18 06:00 Lymph # (Auto) 1.4 (1.2-3.4) 02/07/18 06:00 [facility] # (Auto) 0.5 (0.1-0.6) 02/07/18 06:00 Eos # (Auto) 0.3 (0.0-0.7) 02/07/18 06:00 Baso # (Auto) 0.03 K/mm3 (0.0-2.0) 02/07/18 06:00 PT 12.7 SECONDS (9.4-12.5) H 02/04/18 17:51 INR 1.11 (0.93-1.08) H 02/04/18 17:51 APTT 29.6 Seconds (25.1-36.5) 02/04/18 17:51 pO2 29 mm/Hg (30-55) L 02/04/18 21:45 VBG pH 7.43 (7.32-7.43) 02/04/18 21:45 VBG pCO2 41.0 (40-60) 02/04/18 21:45 VBG HCO3 27.2 mmol/l (21-28) 02/04/18 21:45 VBG Total CO2 28.5 mmol.L (22-28) H 02/04/18 21:45 VBG O2 Sat (Calc) 63.1 % (40-65) 02/04/18 21:45 VBG Base Excess 2.6 mmol/L (0.0-2.0) H 02/04/18 21:45 VBG Potassium 3.3 mmol/L (3.6-5.2) L 02/04/18 21:45 Sodium 140.0 mmol/L (132-148) 02/04/18 21:45 Chloride 106.0 mmol/L (98-107) 02/04/18 21:45 Glucose 119 mg/dl (75-110) H 02/04/18 21:45 Lactate 1.1 mmol/L (0.7-2.1) 02/04/18 21:45 FiO2 21.0 % 02/04/18 21:45 Sodium 143 mmol/L (132-148) 02/07/18 06:00 Potassium 3.6 mmol/L (3.6-5.0) 02/07/18 06:00 Chloride 102 mmol/L (98-107) 02/07/18 06:00 Carbon Dioxide 29 mmol/L (21-33) 02/07/18 06:00 Anion Gap 15 (10-20) 02/07/18 06:00 BUN 10 mg/dL (7-21) 02/07/18 06:00 Creatinine 0.7 mg/dl (0.8-1.5) L 02/07/18 06:00 Est GFR ( Amer) > 60 02/07/18 06:00 Est GFR (Non-Af Amer) > 60 02/07/18 06:00 Random Glucose 89 mg/dL (70-110) 02/07/18 06:00 Serum Osmolality 328 mosm/kg (272-300) H 02/04/18 17:51 Calcium 9.0 mg/dL (8.4-10.5) 02/07/18 06:00 Phosphorus 4.0 mg/dL (2.5-4.5) 02/07/18 06:00 Magnesium 2.0 mg/dL (1.7-2.2) 02/07/18 06:00 Total Bilirubin 1.1 mg/dL (0.2-1.3) 02/07/18 06:00 AST 25 U/L (17-59) 02/07/18 06:00 ALT 37 U/L (7-56) 02/07/18 06:00 Alkaline Phosphatase 52 U/L (38-126) 02/07/18 06:00 Lactate Dehydrogenase 634 U/L (333-699) 02/04/18 17:51 Total Creatine Kinase 345 U/L (35-230) H 02/06/18 06:00 CK-MB (CK-2) 2.1 ng/mL (0.0-3.6) 02/06/18 06:00 CK-MB (CK-2) % 1.0 % (2.5-3.0) L 02/05/18 06:00 Troponin I < 0.01 ng/mL 02/04/18 17:51 Total Protein 7.3 g/dL (5.8-8.3) 02/07/18 06:00 Albumin 4.2 g/dL (3.0-4.8) 02/07/18 06:00 Globulin 3.2 gm/dL 02/07/18 06:00 Albumin/Globulin Ratio 1.3 (1.1-1.8) 02/07/18 06:00 Venous Blood Potassium 3.3 mmol/L (3.6-5.2) L 02/04/18 21:45 Urine Color Yellow (YELLOW) 02/04/18 19:43 Urine Appearance Clear (CLEAR) 02/04/18 19:43 Urine pH 6.5 (4.7-8.0) 02/04/18 19:43 Ur Specific [place] 1.025 (1.005-1.035) 02/04/18 19:43 Urine Protein 100 mg/dL (<30 mg/dL) H 02/04/18 19:43 Urine Glucose (UA) Negative mg/dL (NEGATIVE) 02/04/18 19:43 Urine Ketones 40 mg/dL (NEGATIVE) H 02/04/18 19:43 Urine Blood Trace-lysed (NEGATIVE) H 02/04/18 19:43 Urine Nitrate Negative (NEGATIVE) 02/04/18 19:43 Urine Bilirubin Negative (NEGATIVE) 02/04/18 19:43 Urine Urobilinogen 1.0 E.U./dL (<1 E.U./dL) H 02/04/18 19:43 Ur Leukocyte Esterase Negative Vicenta/uL (NEGATIVE) 02/04/18 19:43 Urine RBC 2 - 5 /hpf (0-2) 02/04/18 19:43 Urine WBC 1 - 3 /hpf (0-6) 02/04/18 19:43 Ur Epithelial Cells 0 - 2 /hpf (0-5) 02/04/18 19:43 Amorphous Sediment Few 02/04/18 19:43 Urine Bacteria Many (NEG) 02/04/18 19:43 Salicylates < 1 mg/dL (2.0-20.0) L 02/04/18 17:51 Urine Opiates Screen Negative (NEGATIVE) 02/04/18 19:43 Urine Methadone Screen Negative (NEGATIVE) 02/04/18 19:43 Acetaminophen < 10.0 ug/ml (10.0-20.0) L 02/04/18 17:51 Ur Barbiturates Screen Negative (NEGATIVE) 02/04/18 19:43 Ur Phencyclidine Scrn Negative (NEGATIVE) 02/04/18 19:43 Ur Amphetamines Screen Negative (NEGATIVE) 02/04/18 19:43 U Benzodiazepines Scrn Negative (NEGATIVE) 02/04/18 19:43 U Oth Cocaine Metabols Negative (NEGATIVE) 02/04/18 19:43 U Cannabinoids Screen Negative (NEGATIVE) 02/04/18 19:43 Alcohol, Quantitative < 10 mg/dL (0-10) 02/04/18 17:51 Isopropanol 0.011 g/dl 02/04/18 20:41 Attending/Attestation - Attestation I have personally seen and examined this patient.: Yes I have fully participated in the care of the patient.: Yes I have reviewed all pertinent clinical information, including history, physical exam and plan: Yes Notes (Text): 02/07/18 17:45 44 year old male with past medical history of alcohol abuse who presented with alcohol withdrawal and isopropyl ingestion. He also had rhabdomyolysis and was started on fluids. He was on tapering librium and ativan. His CPK improved. He initially had gait instability which also improved with physical therapy. Patient is discharged home to follow up with his pmd. Counselled on alcohol abstinence. Donte Colón MD Hospitalist.
== END 2018-02-07 12:42 | disposition home or self-care (01) | DRG 918 ==
LOC: ED 17:23 → ERH 19:40 → 2RNO 20:23 → ERH 20:23 → 2RNO 20:49
PROVIDERS: ADMIT Internal Medicine; ATTEND Internal Medicine
DX: T51.2X1A Toxic effect of 2-Propanol, accidental (unintentional), initial encounter (principal); F10.239 Alcohol dependence with withdrawal, unspecified; M62.82 Rhabdomyolysis; E87.6 Hypokalemia; F41.9 Anxiety disorder, unspecified; E86.0 Dehydration; E83.51 Hypocalcemia; Z87.891 Personal history of nicotine dependence

== ENCOUNTER 2018-06-17 06:25 | Emergency (ER) | payer BC ==
[2018-06-17 06:33] VITALS: BMI 24.3
[2018-06-17 06:39] VITALS: RESP 18; TEMP 98.3
[2018-06-17 06:55] LABS: BASO # 0.02 K/mm3 (0.0-2.0); BASO % 0.1 % (0.0-3.0); GRAN # 11.18 (1.4-6.5); GRAN % 80.2 % (50.0-68.0); HEMOGLOBIN 16.1 g/dL (14.0-18.0); LYMPH # 1.5 (1.2-3.4); LYMPH % 10.9 % (22.0-35.0); MEAN CELL VOLUME 86.5 fl (80.0-105.0); MEAN CORPUSCULAR HEMOGLOBIN 31.4 pg (25.0-35.0); MEAN CORPUSCULAR HGB CONC 36.3 g/dl (31.0-37.0); MEAN PLATELET VOLUME 9.4 fl (7.0-11.0); MONO # 1.2 (0.1-0.6); MONO % 8.8 % (1.0-6.0); RBC 5.13 10^6/uL (3.5-6.1); RED CELL DISTRIBUTION WIDTH 12.6 % (11.5-14.5); WHITE BLOOD COUNT 13.9 10^3/uL (4.5-11.0)
[2018-06-17 07:05] LABS: INR 1.09; PARTIAL THROMBOPLASTIN TIME 27.5 Seconds (25.1-36.5); PROTHROMBIN TIME 12.5 SECONDS (9.4-12.5)
[2018-06-17] MEDS ORDERED: Sodium Chloride 0.9% 1,000 ML IV STA ×2 (07:09→08:56)
[2018-06-17 07:12] LABS: ALB/GLOB RATIO 1.4 (1.1-1.8); ALBUMIN 4.8 g/dL (3.0-4.8); ALT/SGPT 38 U/L (7-56); AST/SGOT 65 U/L (17-59); BLOOD UREA NITROGEN 13 mg/dL (7-21); CALCIUM 9.2 mg/dL (8.4-10.5); GFR NON-AFRICAN AMERICAN > 60
[2018-06-17] MEDS ORDERED: Folic Acid 1 MG, Thiamine 100 MG, Multivitamin (MVI) 10 ML in Dextrose 5% In Water 1,00... IV SCH (07:45)
[2018-06-17 08:03] LABS: VENOUS BLOOD GAS BASE EXCESS 3.3 mmol/L (0.0-2.0); VENOUS BLOOD GAS PO2 101 mm/Hg (30-55); VENOUS BLOOD PH 7.44 (7.32-7.43)
--- NOTE | 2018-06-17 08:27 | ED PDOC ---
Arrival/HPI - General Chief Complaint: Alcohol Ingestion Historian: Patient - History of Present Illness Narrative History of Present Illness (Text): 06/17/18 07:25 47 year old male, whose past medical history includes diverticulitis and history of alcohol abuse, who presents to the ED complaining of dizziness, nausea, and shaking due to "EtOH withdrawal," noting he last drank a pint of rubbing alcohol yesterday at 16:00. Patient states that he does not drink every day, but is a binge drinker. Patient states that he never went to detox before. Patient reports that he did not need surgery for the diverticulitis. Patient denies any other complaints. PMD: Dr. Ramsay Time/Duration: Other (drank 1 pint of rubbing alcohol yesterday at 16:00) Symptom Onset: Gradual Symptom Course: Unchanged Activities at Onset: Other (consumed rubbing alcohol ) Past Medical History - Provider Review Nursing Documentation Reviewed: Yes - Infectious Disease Hx of Infectious Diseases: None - Tetanus Immunization Tetanus Immunization: Unknown - Cardiac Hx Pacemaker: No - Pulmonary Hx Respiratory Disorders: Yes Hx Asthma: No - Neurological Hx Neurological Disorder: No Hx Seizures: Yes ("CONVULSIONS" A CHILD PT STATED) - HEENT Hx HEENT Disorder: No - Renal Hx Renal Disorder: No - Endocrine/Metabolic Hx Endocrine Disorders: No - Hematological/Oncological Hx Blood Disorders: No - Integumentary Hx Dermatological Disorder: No - Musculoskeletal/Rheumatological Hx Musculoskeletal Disorders: Yes (ANKLE SX FROM FALL PLAYING BALL.) Hx Falls: Yes - Gastrointestinal Hx Gastrointestinal Disorders: Yes (COLITIS,GASTROENTERITIS) Hx Diverticulitis: Yes - Genitourinary/Gynecological Hx Genitourinary Disorders: No - Psychiatric Hx Psychophysiologic Disorder: Yes (ETOH ABUSE,SMOKED CIGARETTES) Hx Emotional Abuse: No Hx Physical Abuse: No Hx Substance Use: No - Surgical History Hx Amputation: No Hx Appendectomy: No Hx Cardiac Catheterization: No Hx Cholecystectomy: No Hx Coronary Stent: No Hx Gastric Bypass Surgery: No Hx Hysterectomy: No Hx Joint Replacement: No Hx Kidney Transplant: No Hx Liver Transplant: No Hx Mastectomy: No Hx Musculoskeletal Surgery: No Hx Open Heart Surgery: No Hx Orthopedic Surgery: No Hx Splenectomy: No Hx Valve Replacement: No - Anesthesia Hx Anesthesia: No Hx Anesthesia Reactions: No Hx Malignant Hyperthermia: No - Suicidal Assessment Feels Threatened In Home Enviroment: No Family/Social History - Physician Review Nursing Documentation Reviewed: Yes Family/Social History: No Known Family HX Smoking Status: Former Smoker Hx Alcohol Use: Yes ("i drink about 1-2x a week, but i get my binges") Hx Substance Use: No Allergies/Home Meds Allergies/Adverse Reactions: Allergies No Known Allergies Allergy (Verified 02/04/18 21:03) Home Medications: Home Meds Medication Instructions Recorded Confirmed Dexlansoprazole [Dexilant] 60 mg PO DAILY 08/19/15 08/20/15 Hydrocodone/Acetaminophen [Vicodin 1 each PO Q8H PRN 08/19/15 08/20/15 Hp 10-300 mg Tablet] Polyethylene Glycol 3350 [Miralax] 17 gm PO DAILY 08/19/15 08/19/15 clonazePAM [Klonopin] 0.5 mg PO BID 08/19/15 08/20/15 Review of Systems - Physician Review All systems were reviewed & negative as marked: Yes - Review of Systems Gastrointestinal: Nausea (Patient notes nausea), Vomiting (patient notes vomiting). absent: Normal Neurological: Dizziness (patient notes dizziness), Other (Patient notes shaking due to EtOH withdrawal). absent: Normal Physical Exam Vital Signs Reviewed: Yes Vital Signs Temp Pulse Resp BP Pulse Ox 06/17/18 07:24 82 18 122/72 99 06/17/18 06:38 98.3 F 78 18 148/85 97 Temperature: Afebrile Blood Pressure: Normal Pulse: Regular Respiratory Rate: Normal Appearance: Positive for: Well-Appearing, Non-Toxic, Comfortable Pain Distress: None Mental Status: Positive for: Alert and Oriented X 3 - Systems Exam Head: Present: Atraumatic, Normocephalic Pupils: Present: PERRL Extroacular Muscles: Present: EOMI Conjunctiva: Present: Normal Mouth: Present: Dry (appears dry). No: Normal Tounge (mild tounge fasciculations) Neck: Present: Normal Range of Motion Respiratory/Chest: Present: Clear to Auscultation, Good Air Exchange. No: Respiratory Distress, Accessory Muscle Use Cardiovascular: Present: Regular Rate and Rhythm, Normal S1, S2. No: Murmurs Abdomen: No: Tenderness, Distention, Peritoneal Signs Back: Present: Normal Inspection Upper Extremity: Present: Other (mild hand tremors). No: Normal Inspection Lower Extremity: Present: Normal Inspection. No: Edema Neurological: Present: GCS=15, CN II-XII Intact, Speech Normal Skin: Present: Warm, Dry, Normal Color. No: Rashes Psychiatric: Present: Alert, Oriented x 3, Normal Insight, Normal Concentration Medical Decision Making ED Course and Treatment: 06/17/18 07:25 Impression: 47 year old male who presents to the ED complaining of dizziness, nausea, and shaking due to "EtOH withdrawal," noting he last drank a pint of rubbing alcohol yesterday at 16:00. Plan: -- Labs -- EKG -- CBC (with differential) -- Partial Thromboplastin Time -- Prothrombin Time -- Ativan -- Dextrose 5% In water 1000ml (folic acid 1mg, thiamine 100mg, multivitamin) -- IV fluids -- Zofran Inj 4mg IVP -- Urinalysis -- Reassess and disposition Prior Visits: Notes and results from previous visits were reviewed. Patient was last seen in the emergency department on 02/04/18 presenting for feeling very anxious and shaky. Patient was hospitalized with diagnosis of alcohol withdrawal and Isopropyl alcohol poisoning. Progress Notes: 06/17/18 10:45 On reevaluation, patient is feeling better. Patient will follow up with PMD. - Lab Interpretations Lab Results: 06/17/18 06:36 06/17/18 06:36 Lab Results 06/17/18 07:45: pO2 101 H, VBG pH 7.44 H, VBG pCO2 41.0, VBG HCO3 27.8, VBG Total CO2 29.1 H, VBG O2 Sat (Calc) 99.3 H, VBG Base Excess 3.3 H, VBG Potassium 3.8, Glucose 126 H, Lactate 1.9, FiO2 21.0, Sodium 139.0, Chloride 103.0, Venous Blood Potassium 3.8 06/17/18 06:36: Sodium 139, Potassium 3.7, Chloride 99, Carbon Dioxide 29, Anion Gap 15, BUN 13, Creatinine 0.7 L, Est GFR ( Amer) > 60, Est GFR (Non-Af Amer) > 60, Random Glucose 143 H, Calcium 9.2, Phosphorus 1.9 L, Magnesium 2.0, Total Bilirubin 1.8 H, AST 65 H D, ALT 38, Alkaline Phosphatase 73, Total Protein 8.1, Albumin 4.8, Globulin 3.3, Albumin/Globulin Ratio 1.4 06/17/18 06:36: PT 12.5, INR 1.09, APTT 27.5 06/17/18 06:36: WBC 13.9 H, RBC 5.13, Hgb 16.1, Hct 44.4, MCV 86.5, MCH 31.4, MC HC 36.3, RDW 12.6, Plt Count 278, MPV 9.4, Gran % 80.2 H, Lymph % (Auto) 10.9 L, [place] % (Auto) 8.8 H, Eos % (Auto) 0.0 L, Baso % (Auto) 0.1, Gran # 11.18 H, Lymph # (Auto) 1.5, [place] # (Auto) 1.2 H, Eos # (Auto) 0.0, Baso # (Auto) 0.02 06/17/18 06:36: Alcohol, Quantitative < 10 - EKG Interpretation EKG Interpretation (Text): 06/17/18 EKG: Ordered, reviewed, and independently interpreted the EKG. Rate : 84 BPM Rhythm : NSR Interpretation : No ST-segment elevations or depressions, no T-wave inversions, normal intervals. Interpreted by ED Physician: Yes Type: 12 lead EKG - Medication Orders Current Medication Orders: Folic Acid 1 mg/ Thiamine HCl 100 mg/ Multivitamins/Vitamin C 10 ml/ Dextrose 1,011.2 mls @ 250 mls/hr IV .Q4H3M HARPER Last Admin: 06/17/18 08:08 Dose: 250 mls/hr eMAR Start Stop Document 06/17/18 08:08 EQ (Rec: 06/17/18 08:08 EQ [id number]) Intravenous Solution Start Date 06/17/18 Start Time 08:08 Discontinued Medications Sodium Chloride (Sodium Chloride 0.9%) 1,000 mls @ 999 mls/hr IV .Q1H1M STA Stop: 06/17/18 08:09 Last Admin: 06/17/18 07:18 Dose: 999 mls/hr eMAR Start Stop Document 06/17/18 07:18 EQ (Rec: 06/17/18 07:18 EQ [id number] Intravenous Solution Start Date 06/17/18 Start Time 07:18 Lorazepam (Ativan) 1 mg IVP STAT STA; Protocol Stop: 06/17/18 07:32 Last Admin: 06/17/18 07:45 Dose: 1 mg IVP Administration Document 06/17/18 07:45 EQ (Rec: 06/17/18 07:46 EQ [id number] Charges for Administration # of IVP Administrations 1 Ondansetron HCl (Zofran Inj) 4 mg IVP STAT STA Stop: 06/17/18 07:10 Last Admin: 06/17/18 07:18 Dose: 4 mg IVP Administration Document 06/17/18 07:18 EQ (Rec: 06/17/18 07:18 EQ [email or web address]-) Charges for Administration # of IVP Administrations 1 - Scribe Statement The provider has reviewed the documentation as recorded by the Scribe Shanita Maza All medical record entries made by the Scribe were at my direction and personally dictated by me. I have reviewed the chart and agree that the record accurately reflects my personal performance of the history, physical exam, medical decision making, and the department course for this patient. I have also personally directed, reviewed, and agree with the discharge instructions and disposition. Disposition/Present on Arrival - Present on Arrival Any Indicators Present on Arrival: No History of DVT/PE: No History of Uncontrolled Diabetes: No Urinary Catheter: No History of Decub. Ulcer: No History Surgical Site Infection Following: None - Disposition Have Diagnosis and Disposition been Completed?: Yes Diagnosis: Alcohol abuse Disposition: HOME/ ROUTINE Disposition Time: 09:00 Condition: GOOD Discharge Instructions (ExitCare): Alcohol Abuse and Alcoholism (DC), Effects of Alcohol on Your Health Additional Instructions: ROX LEE, thank you for letting us take care of you today. The emergency medical care you received today was directed at your acute symptoms. If you were prescribed any medication, please fill it and take as directed. It may take several days for your symptoms to resolve. Return to the Emergency Department if your symptoms worsen, do not improve, or if you have any other problems. Please contact your doctor or call one of the physicians/clinics you have been referred to that are listed on the Patient Visit Information form that is included in your discharge packet. Bring any paperwork you were given at discharge with you along with any medications you are taking to your follow up visit. Our treatment cannot replace ongoing medical care by a primary care provider outside of the emergency department. Thank you for allowing the [facility] team to be part of your care today. Follow up with your primary care doctor or our clinic in 2-3 day for re- evaluation and further management. Prescriptions: chlordiazePOXIDE [Chlordiazepoxide HCl] 25 mg PO Q8 PRN #15 cap PRN Reason: Anxiety Referrals: [facility] [Outside] - Follow up with primary Chetna Ramsay MD [Family Provider] - Follow up with primary Lindsay Welsh MD [Medical Doctor] - Follow up with primary Forms: [employer] ([place])
[2018-06-17 09:02] VITALS: O2SAT 97
[2018-06-17 09:29] LABS: CK MB% 1.1 % (2.5-3.0); CK-MB 16.1 ng/mL (0.0-3.6)
[2018-06-17 10:05] LABS: PH,URINE 6.5 (4.7-8.0); URINE BILIRUBIN NEGATIVE (NEGATIVE); URINE BLOOD MODERATE (NEGATIVE); URINE GLUCOSE (UA) NEGATIVE (NEGATIVE); URINE LEUKOCYTE ESTERASE NEGATIVE Leu/uL (NEGATIVE); URINE PROTEIN 30 mg/dL (<30 mg/dL); URINE UROBILINOGEN 0.2 E.U./dL (<1 E.U./dL)
[2018-06-17 10:06] LABS: URINE APPEARANCE CLEAR (CLEAR); URINE COLOR YELLOW (YELLOW)
[2018-06-17 10:14] LABS: URINE BACTERIA FEW (NEG); URINE EPITHELIAL CELLS 0 - 2 /hpf (0-5); URINE WBC 0 - 2 /hpf (0-6)
[2018-06-17 10:24] LABS: OPIATES, UR NEGATIVE (NEGATIVE); PHENCYCLIDINE, UR NEGATIVE (NEGATIVE)
[2018-06-17 10:25] LABS: BARBITURATES, UR NEGATIVE (NEGATIVE); BENZODIAZEPINES, UR NEGATIVE (NEGATIVE)
[2018-06-17 10:50] VITALS: BP 112/66; PULSE 75
--- NOTE | 2018-06-17 19:34 | CARD ---
APPROVED REPORT Date of service: 06/17/2018 EKG Measurement Heart [id number] <Conclusion> Normal sinus rhythm with sinus arrhythmia Normal Electrocardiogram
== END 2018-06-17 11:07 | disposition home or self-care (01) ==
LOC: ED 06:25
DX: F10.10 Alcohol abuse, uncomplicated (principal); Z87.891 Personal history of nicotine dependence
CPT/HCPCS: 80053; 81001; 82550; 82553; 82803; 83735; 83930; 84100; 85025; 85610; 85730; 93005; 96374; 96375; 99284; G0480; J2060; J2405; J2765; J3411; J7030; J7070